=== PATIENT | female | born 1985 | race African-American/Black ===

== ENCOUNTER 2016-07-11 23:22 | Inpatient (IN) | payer SELFPAY ==
[2016-07-11] MEDS ORDERED: ceFAZolin 2 GM PREMIX 50 ML ONE (23:26)
[2016-07-11 23:30] VITALS: O2SAT 100
[2016-07-11] MEDS ORDERED: PROPOFOL 1000 MG/100 ML INJ 100 ML ONE (23:31)
[2016-07-11] MEDS ORDERED: DIPHTH/TETANUS/ACEL PERTUSSIS (BOOSTER) 0.5 ML VIAL/PFS IM ONE ×2 (23:33→23:37)
[2016-07-11] MEDS ORDERED: ceFAZolin 2 GM PREMIX 50 ML IV STA (23:37)
[2016-07-11 23:44] LABS: AUTOMATED NEUTROPHIL # 4.2 TH/MM3 (1.8-7.7); BASOPHIL # 0.1 TH/MM3 (0-0.2); BASOPHIL % 0.7 % (0.0-2.0); EOSINOPHIL # 0.3 TH/MM3 (0-0.4); EOSINOPHIL % 2.6 % (0.0-4.0); HEMATOCRIT 39.5 % (35.0-46.0); HEMO FLAGS DIFF FINAL; LYMPH % 47.3 % (9.0-44.0); LYMPHOCYTE # 4.6 TH/MM3 (1.0-4.8); MEAN CELL VOLUME 89.9 FL (80.0-100.0); MEAN CORPUSCULAR HEMOGLOBIN 31.1 PG (27.0-34.0); MEAN CORPUSCULAR HGB CONC 34.5 % (32.0-36.0); MONO % 6.1 % (0.0-8.0); NEUT % 43.3 % (16.0-70.0); PLATELET COUNT 241 TH/MM3 (150-450); RED CELL DISTRIBUTION WIDTH 13.6 % (11.6-17.2); WHITE BLOOD COUNT 9.7 TH/MM3 (4.0-11.0)
[2016-07-11 23:46] LABS: I-STAT POTASSIUM 3.4 MMOL/L (3.5-4.9)
[2016-07-11] MEDS: SODIUM CHLOR 0.9% 1000 ML INJ 1,000 ML IV SCH (23:51)
[2016-07-11 23:55] LABS: APTT (PATIENT) 25.2 SEC (24.3-30.1); PROTHROMBIN TIME - PATIENT 10.6 SEC (9.8-11.6)
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
[2016-07-12] VITALS (17 sets, daily range): BP systolic 98–158; BP diastolic 51–96; PULSE 86–146; RESP 14–20; TEMP 97.6–99.6; O2SAT 98–100
[2016-07-12] MEDS ORDERED: MAGNESIUM SULFATE INJ 2 GM in SODIUM CHLORIDE 0.9% INJ 96 ML IV PRN ×2
[2016-07-12] MEDS ORDERED: SODIUM PHOSPHATE INJ 30 MMOL in SODIUM CHLOR 0.9% 250 ML INJ 240 ML IV PRN ×2
[2016-07-12] MEDS ORDERED: POTASSIUM PHOSPHATE MONOBASIC 500 MG TAB PO PRN
[2016-07-12] MEDS ORDERED: PANTOPRAZOLE SODIUM 40 MG VIAL IV SCH
[2016-07-12] MEDS ORDERED: POTASSIUM CHLOR 40 MEQ PREMIX 100 ML IV PRN ×2
[2016-07-12] MEDS ORDERED: POTASSIUM CL 40 MEQ/30 ML LIQ UDC PO/TUBE PRN ×2
[2016-07-12] MEDS ORDERED: MAGNESIUM OXIDE 400 MG TAB PO PRN
[2016-07-12] MEDS ORDERED: POTASSIUM CHLOR 20 MEQ PREMIX 100 ML IV PRN ×2
[2016-07-12] MEDS ORDERED: NALOXONE HCL 0.4 MG/ML AMP IV PRN
[2016-07-12] MEDS ORDERED: SODIUM CHLORIDE 0.9% FLUSH 5 ML FLUSH IVF PRN
[2016-07-12] MEDS ORDERED: POTASSIUM PHOSPHATE MONOBASIC 500 MG TAB PO/TUBE PRN
[2016-07-12] MEDS ORDERED: POTASSIUM PHOSPHATE INJ 30 MMOL in SODIUM CHLOR 0.9% 250 ML INJ 250 ML IV PRN ×2
[2016-07-12] MEDS ORDERED: MAGNESIUM SULFATE INJ 4 GM in SODIUM CHLORIDE 0.9% INJ 92 ML IV PRN ×2
[2016-07-12] MEDS ORDERED: Post-op Orders (for Pharmacy) MISC XX ONE
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
[2016-07-12] MEDS ORDERED: IOHEXOL 350 MG/ML 10 ML VIAL (for RAD DIAG) IV ONE (00:10)
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
[2016-07-12 00:20] LABS: AMPHETAMINE, URINE NEG (NEG); BARBITURATES, URINE NEG (NEG); COCAINE, URINE NEG (NEG)
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
[2016-07-12] MEDS ORDERED: EPINEPHrine HCL (1:1000) 1 MG/ML VIAL ONE (00:42)
[2016-07-12 01:10] LABS: BLOOD GAS CARBOXYHEMOGLOBIN 1.2 % (0-4); BLOOD GAS HCO3 18 mmol/L (22-26); BLOOD GAS O2 HGB SATURATION 97 % (90-100); BLOOD GAS OXYGEN CONTENT 17.9 Vol % (12.0-20.0); BLOOD GAS PCO2 39 mmHg (38-42); BLOOD GAS PO2 391 mmHg (61-120); BLOOD GAS TOTAL HGB 12.4 G/DL (12.0-16.0); TEMP CORR TO 98.6
[2016-07-12] MEDS ORDERED: PROPOFOL 1000 MG/100 ML INJ 100 ML ONE (01:10)
[2016-07-12 01:14] LABS: CRITICAL VALUE YES; DRAW SITE RT RADIAL; FIO2 80 %; NUMBER OF ARTERIAL PUNCTURES 1; OXYGEN DEVICE VENTILATOR; STAT YES; ULNAR PULSE PRESENT
[2016-07-12] MEDS ORDERED: ROCURONIUM INJ 50 MG/5 ML VIAL ONE (01:23)
[2016-07-12] MEDS ORDERED: ROCURONIUM INJ 50 MG/5 ML VIAL IV PUSH ONE (01:25)
[2016-07-12] MEDS ORDERED: PROPOFOL 1000 MG/100 ML IV SCH (01:45)
[2016-07-12] MEDS ORDERED: CHLORHEXIDINE GLUCONATE 2 % 1 PACK (2 CLOTHS)(taper/protocol) TOP SCH (04:00)
[2016-07-12] MEDS ORDERED: ROCURONIUM INJ 50 MG/5 ML VIAL IV ONE (04:30)
[2016-07-12] MEDS ORDERED: CHLORHEXIDINE GLUCONATE 2 % 1 PACK (2 CLOTHS)(extra cloths) TOP PRN (05:15)
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
[2016-07-12] MEDS ORDERED: SENNOSIDES 8.6 MG TAB PO PRN (08:15)
[2016-07-12] MEDS ORDERED: ONDANSETRON HCL 4 MG/2 ML VIAL IV PRN (08:15)
[2016-07-12] MEDS ORDERED: RESP: ALBUTEROL 2.5 MG/IPRATROPIUM 0.5 MG NEB (PRN) INH (08:15)
[2016-07-12] MEDS ORDERED: ACETAMINOPHEN 325 MG TAB PO PRN ×2 (08:15→13:45)
[2016-07-12] MEDS ORDERED: SODIUM CHLORIDE 0.9% FLUSH 5 ML FLUSH IV FLUSH PRN ×2 (08:15)
[2016-07-12] MEDS: SODIUM CHLORIDE 0.9% FLUSH 5 ML FLUSH IV FLUSH SCH ×4 (09:00→21:32)
[2016-07-12] MEDS ORDERED: MUPIROCIN 2% OINT 1 APPLIC/GM SYR NASAL SCH (09:00)
[2016-07-12] MEDS ORDERED: fentaNYL DRIP 250 ML IV SCH (09:00)
[2016-07-12] MEDS ORDERED: SODIUM CHLORIDE 0.9% FLUSH 5 ML FLUSH IVF SCH (09:00)
[2016-07-12] MEDS: SODIUM CHLOR 0.9% 1000 ML INJ 1,000 ML IV SCH (09:51)
[2016-07-12] MEDS: BACITRACIN TOP OINT 15 GM TUBE TOP SCH ×2 (10:00→21:32)
[2016-07-12] MEDS: MUPIROCIN 2% OINT 1 APPLIC/GM SYR EACH NARE SCH ×2 (10:42→21:32)
[2016-07-12] MEDS: PANTOPRAZOLE SODIUM 40 MG VIAL IV SCH (10:42)
[2016-07-12] MEDS: ARTIFICIAL TEARS OPTH SOLN 15 ML BTL EACH EYE SCH ×2 (10:43→13:00)
[2016-07-12] MEDS: DOCUSATE SODIUM 100 MG CAP PO SCH ×2 (10:43→21:00)
[2016-07-12] MEDS ORDERED: MULTIVITAMIN INJ 10 ML, THIAMINE INJ 100 MG, FOLIC ACID INJ 1 MG in SODIUM CHLORID 0.9%... IV SCH (11:00)
[2016-07-12 11:16] LABS: ALKALINE PHOSPHATASE 68 U/L (45-117); ALT (GPT) 39 U/L (10-53); ANION GAP 11 MEQ/L (5-15); AST (GOT) 31 U/L (15-37); BICARBONATE 21.1 MEQ/L (21.0-32.0); BLOOD UREA NITROGEN 7 MG/DL (7-18); CHLORIDE 109 MEQ/L (98-107); GLOMERULAR FILTRATION RATE 79 ML/MIN (>89); POTASSIUM 3.5 MEQ/L (3.5-5.1); SODIUM (NA) 141 MEQ/L (136-145); TOTAL BILIRUBIN ADULT 0.3 MG/DL (0.2-1.0)
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
[2016-07-12] MEDS: oxyCODONE/ACETAMINOPHEN 5 MG/325 MG TAB PO PRN ×2 (15:24→21:41)
[2016-07-13] VITALS: BP 100/58; PULSE 84; RESP 15; TEMP 98.7; O2SAT 96
[2016-07-13 04:00] VITALS: BP 113/56; PULSE 77; RESP 19; TEMP 98.8; O2SAT 96
[2016-07-13 04:26] LABS: AUTOMATED NEUTROPHIL # 7.5 TH/MM3 (1.8-7.7); BASOPHIL % 0.5 % (0.0-2.0); EOSINOPHIL # 0.3 TH/MM3 (0-0.4); HEMATOCRIT 36.5 % (35.0-46.0); HEMO FLAGS DIFF FINAL; LYMPH % 19.6 % (9.0-44.0); LYMPHOCYTE # 2.1 TH/MM3 (1.0-4.8); MEAN CORPUSCULAR HEMOGLOBIN 31.3 PG (27.0-34.0); MEAN CORPUSCULAR HGB CONC 34.8 % (32.0-36.0); MONO % 6.6 % (0.0-8.0); NEUT % 70.3 % (16.0-70.0); PLATELET COUNT 201 TH/MM3 (150-450); RED BLOOD COUNT 4.05 MIL/MM3 (4.00-5.30); RED CELL DISTRIBUTION WIDTH 13.5 % (11.6-17.2); WHITE BLOOD COUNT 10.7 TH/MM3 (4.0-11.0)
[2016-07-13 04:57] LABS: ALKALINE PHOSPHATASE 67 U/L (45-117); ALT (GPT) 29 U/L (10-53); ANION GAP 9 MEQ/L (5-15); AST (GOT) 22 U/L (15-37); BICARBONATE 27.4 MEQ/L (21.0-32.0); BLOOD UREA NITROGEN 8 MG/DL (7-18); CHLORIDE 101 MEQ/L (98-107); GLOMERULAR FILTRATION RATE 69 ML/MIN (>89); POTASSIUM 3.2 MEQ/L (3.5-5.1); SODIUM (NA) 137 MEQ/L (136-145); TOTAL BILIRUBIN ADULT 0.5 MG/DL (0.2-1.0)
[2016-07-13] MEDS: oxyCODONE/ACETAMINOPHEN 5 MG/325 MG TAB PO PRN (06:08)
[2016-07-13] MEDS ORDERED: POTASSIUM CHLOR 20 MEQ PREMIX 100 ML IV ONE (07:15)
[2016-07-13] MEDS ORDERED: POTASSIUM CHLORIDE 20 MEQ CONTROLLED RELEASE TAB PO ONE (07:15)
[2016-07-13] MEDS ORDERED: LACTULOSE SYRUP 20 GM/30 ML CUP PO ONE (07:15)
[2016-07-13 08:00] VITALS: BP 104/59; PULSE 76; RESP 13; TEMP 98.6; O2SAT 98
[2016-07-13] MEDS: BACITRACIN TOP OINT 15 GM TUBE TOP SCH (08:33)
[2016-07-13] MEDS: MUPIROCIN 2% OINT 1 APPLIC/GM SYR EACH NARE SCH (08:33)
[2016-07-13] MEDS: PANTOPRAZOLE SODIUM 40 MG VIAL IV SCH (08:33)
[2016-07-13] MEDS: DOCUSATE SODIUM 100 MG CAP PO SCH (08:34)
[2016-07-13] MEDS: SODIUM CHLORIDE 0.9% FLUSH 5 ML FLUSH IV FLUSH SCH (08:34)
[2016-07-13 08:36] VITALS: O2SAT 97
[2016-07-13] MEDS ORDERED: MAGNESIUM HYDROXIDE SUSP 30 ML CUP PO SCH (09:00)
[2016-07-13] MEDS ORDERED: DOCU1CAP39 PO (10:55)
[2016-07-13] MEDS ORDERED: ACET325T PO (10:55)
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
[2016-07-13 12:00] VITALS: BP 117/82; PULSE 89; RESP 14; TEMP 98.6; O2SAT 98
== END 2016-07-13 12:49 | disposition home or self-care (01) | DRG 89 ==
LOC: NEPI 23:22 → NEDH 23:49 → EDBD 23:49 → N03A 07-12 00:08
PROVIDERS: ADMIT Surgery; ATTEND Surgery
PROC: 0BH17EZ Insertion of Endotracheal Airway into Trachea, Via Natural or Artificial Opening (ICD-10-PCS; principal; 2016-07-11)
DX: S06.0X9A Concussion with loss of consciousness of unspecified duration, initial encounter (principal); S32.019A Unspecified fracture of first lumbar vertebra, initial encounter for closed fracture; J98.11 Atelectasis; F10.129 Alcohol abuse with intoxication, unspecified; S02.113A Unspecified occipital condyle fracture, initial encounter for closed fracture; S00.81XA Abrasion of other part of head, initial encounter; Y90.8 Blood alcohol level of 240 mg/100 ml or more; S00.31XA Abrasion of nose, initial encounter; X58.XXXA Exposure to other specified factors, initial encounter
CPT/HCPCS: 31500; 36600; 51702; 70450; 70486; 71010; 71260; 72125; 72170; 73560; 74177; 80053; 80301; 80320; 82140; 82435; 82565; 82805; 82947; 83735; 84100; 84132; 84295; 84520; 85025; 85610; 85730; 86850; 86900; 86901; 87641; 90471; 90715; 94002; 94150; 94667; 96374; 96375; 99291; C9113; G0390; G0479; J0171; J0690; J3411; J3480; J7030; J7040; L0150; Q9967

== ENCOUNTER 2017-01-14 09:41 | Emergency (ER) | payer SELFPAY ==
[~2017-01-14] VITALS: Ht 170.2 cm; Wt 77.2 kg
[~2017-01-14 09:41] MED LIST: ACET325T PO; DOCU1CAP39 PO
[2017-01-14 09:48] VITALS: BP 130/58; PULSE 117; RESP 16; TEMP 98.4; O2SAT 98
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
[2017-01-14 11:11] VITALS: BP 142/65
== END 2017-01-14 11:13 | disposition home or self-care (01) ==
LOC: NEPD 09:41
DX: F10.120 Alcohol abuse with intoxication, uncomplicated (principal); Z72.0 Tobacco use
CPT/HCPCS: 99283